=== PATIENT | female | born 1990 | race Caucasian/White ===

== ENCOUNTER 2020-11-23 20:48 | Emergency (ER) | payer BC ==
[2020-11-23 20:56] VITALS: Ht 149.9 cm
[2020-11-23] MEDS ORDERED: CLEOCIN HCL300 MG PO (22:21)
[2020-11-23] MEDS ORDERED: CEPHALEXIN500 M1 PO (22:21)
[2020-11-23] MEDS ORDERED: DICLOFENAC SODI50 MG PO (22:21)
[2020-11-23 22:37] LABS: HEMOGLOBIN 10.3 g/dL (12-16)
[2020-11-23 22:38] LABS: BASOPHILS 1.6 % (0-2); EOSINOPHILS 2.4 % (0-7); HEMATOCRIT 32.4 % (36.0-48.0); LYMPHOCYTES 33.7 % (15-50); MCH 22.3 pg (26.0-34.0); MCHC 31.8 g/dL (31.0-37.0); MCV 70.3 fL (80.0-100.0); MEAN PLATELET VOLUME 7.8 fL (7.4-10.4); NEUTROPHILS 57.3 % (40-80); RDW 15.6 % (11.5-14.5); WBC 7.5 10x3/uL (4.8-10.8)
[2020-11-23 22:39] LABS: PLATELET COUNT 314 10x3/uL (130-400)
[2020-11-23 22:45] LABS: CALC OSMOLALITY 275 mosm/kg (275-300); CARBON DIOXIDE 24.9 mmol/L (21.0-32.0); CHLORIDE - SERUM 104 mmol/L (98-107); CREATININE - SERUM 0.6 mg/dL (0.6-1.3); GLUCOSE 109 mg/dL (74-106); SODIUM 138 mmol/L (136-145); UREA NITROGEN 11 mg/dL (7-18); eGFR NON AFRICAN AMERICAN > 90 mL/min (90-120)
[2020-11-23 22:52] LABS: ALBUMIN 3.1 g/dL (3.4-5.0); ALKALINE PHOSPHATASE 88 U/L (30-120); ALT (SGPT) 75 U/L (10-68); BILIRUBIN - TOTAL 0.19 mg/dL (0.2-1.3); PROTEIN - SERUM 8.4 g/dL (6.4-8.2)
[2020-11-24 00:06] VITALS: BP 163/102
== END 2020-11-24 00:05 | disposition home or self-care (01) ==
LOC: D.ER 20:48
PROVIDERS: Family Medicine
DX: L02.413 Cutaneous abscess of right upper limb (principal); I10 Essential (primary) hypertension; Z72.0 Tobacco use